=== PATIENT | male | born 1960 | race Caucasian/White ===

== ENCOUNTER 2023-02-01 07:05 | Day surgery (SDC) | payer BC ==
[~2023-02-01 07:05] MED LIST: Sodium Chloride 0.9% 10 ML Syringe FLUSH PRN
[2023-02-01] MEDS ORDERED: Propofol 200 MG/20 ML SDV IV ONE (07:06)
[2023-02-01] MEDS: Lactated Ringers 1,000 ML IV SCH (07:45)
[2023-02-01 11:03] VITALS: BP 141/100; PULSE 69
== END 2023-02-01 10:02 | disposition home or self-care (01) ==
LOC: FB.SDS 07:05
PROVIDERS: ATTEND Surgery
DX: D12.6 Benign neoplasm of colon, unspecified (principal); K40.90 Unilateral inguinal hernia, without obstruction or gangrene, not specified as recurrent; I10 Essential (primary) hypertension; Z80.0 Family history of malignant neoplasm of digestive organs; Z79.899 Other long term (current) drug therapy
CPT/HCPCS: 45384; 45385; 88305; J2704; J7120; 00812